=== PATIENT | female | born 1985 | race Caucasian/White ===

== ENCOUNTER 2024-08-06 00:08 | Inpatient (IN) ==
[2024-08-06] MEDS ORDERED: LIDOCAINE 1% LOCAL 20 ML VIAL INFIL PRN (01:12)
[2024-08-06] MEDS ORDERED: OXYTOCIN 30 UNITS/NSS 30 UNITS/500 ML BAG IV PRN (01:12)
--- NOTE | 2024-08-06 01:16 | History & Physical Report ---
Date of Service August 06, 2024 Assessment & Plan (1) Group B streptococcal infection during : (2) Previous delivery affecting : (3) Normal labor: Plan Patient presents at 39 weeks in active spontaneous labor. She is very much desirous of a PARRIS/. Although I cannot locate an actual op report in her previous records, it is listed in her ob history that she has a low transverse c/s. The c/s occurred in such a way and time that it is very likely a ltcs. Additionally, she was never told she was not a candidate for a PARRIS by her delivering physician. We reviewed the consent for PARRIS/ discussing the 1% chance of rupture and the potential consequences of this. She understands that if she does not have a ltcs or extension with her previous surgery, she is at higher risk of rupture with parris. FEtus is category 2 with a very occasional variable, but over all excellent variability with accels. Confirmed cephalic by ultrasound. Will allow PARRIS but if any concern, would move to c/s. They express understanding of this. Treat for GBS positive. Anticipate . History of Present Illness Chief Complaint: contractions Primary Care Provider: NO PCP Patient is a 39yowf who presents to labor and delivery at 39 2/7 complaining of onset of contractions around 10pm, quickly becoming painful. no lof/vb. +fm. has been uncomplicated. Patient has hx of of 23 weeker that shortly after . then she had a c/s in her second . iol, got to complete, did not push for long and was told that she would need a c/s because not moving the baby and ? about swelling of her perineum. She notes that delivery was uncomplicated was never told that she should not attempt a REview of the 89 pages of transferred records that we have do not have a delivery note. However, it is noted in her records under her hx that this delivery in 2020 was c/s--LTrv. I suspect this is a low transverse notation but I cannot confirm this with the actual op report. and Delivery Plans AMA Weekly NST's starting @ 36weeks Prior Planning for but will schedule repeat in 40th wk in case she does not go into labor on her own. C/S SCHEDULED FOR 08/14/[address] 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 Hep B Non-Immune *Rec Vaccine GBS Positive *Treat in Labor OB Labs: Blood Type A Positive 01/02/24 Antibody Screen NEGATIVE 01/02/24 Hgb 12.1 g/dl (12.0-16.0) 05/30/24 Hct 34.8 % (37.0-47.0) L 05/30/24 MCV 90.6 fL (80.0-100.0) 01/02/24 Plt Count 209 K/uL (130-400) 01/02/24 Rubella IgG Antibody Immune (Immune) 01/02/24 RPR Nonreactive (Nonreactive) 01/02/24 Treponema pallidum Ab Negative (Negative) 05/30/24 Hep Bs Antigen Negative (Negative) 01/02/24 HIV 1&2 Ab/P24 Ag 4thGn Negative (Negative) 01/02/24 Glucose 1 Hr 50 gm 83 mg/dl (70-130) 05/30/24 OB Optional Labs: Chlamydia trachomatis RNA Not Detected (NotDetected) 01/02/24 Neisseria gonorrhoeae RNA Not Detected (NotDetected) 01/02/24 low risk panorama gbs positive Allergies Allergy/AdvReac Type Severity Reaction Status Date / Time hydromorphone [From Dilaudid] Allergy Unknown Difficulty Verified 07/31/24 15:21 Breathing Home Medications Medication Instructions Recorded Confirmed Type vits no.124-ferrous fum 1 tab PO DAILY 08/06/24 08/06/24 History 27 mg iron-folic acid 800 mcg tablet ( Vitamin) Patient History Medical History History of chicken pox Psoriasis Surgical History H/O wisdom tooth extraction S/P due to arrest of descent Family History Grandfather (Paternal) Myocardial infarction Grandmother (Paternal) Ovarian cancer Great grandma Denies family history of Prostate cancer Breast cancer Colorectal cancer Social History (Updated 12/28/23 @ 11:51 by NANALEE Sweeney Smoking Status: Never smoker Second Hand Exposure: No; Do You Dip or Chew Tobacco: No; Hx Alcohol Use: No Hx Substance Use: No Preferred Language: Nepalese School Based Therapist Required: No Beliefs That Will Affect Care: None marital status: marital status details: Angel Garcia (42) [phone] Current Living Situation: Spouse Current Living Situation Comment: lives with , daughter, and 1 dog current occupational status: employed current occupation: [employer] How many Children do You have: 1 Feels Safe at Home: Yes Safety Concerns: Feels Safe At This Time Assistive Devices: None OB History Past Pregnancies Del. Date GA wks Lbr Lgth wt Sex Type del Anes Place Del Prov ? Comment 02/03/20 23 3lbs F Epidural Other [facility] in [place] Y PTL, 20hr after delivery- edgar-widemann syndrome 04/28/21 40 7lb F Spi nal [facility] in [place] N Pt unsure 03/14/23 8 Aborted-Spontaneous MAB @ 8w2d , Cytotec Physical Exam Constitutional: WD/WN, vitals as above Gastrointestinal (Abdomen): soft, gravid, nt Psychiatric: A+Ox3, euthymic affect Genitourinary: cx--4-5/100/-2 EFM--140s with mod variability, small accels, occasional variable toco--q2min Results & Data Vital Signs (Past 12 Hours) Vital Signs Pulse Resp BP 08/06/24 00:39 18 08/06/24 00:27 80 132/84 Coding Level of Care Code None Diagnoses Group B streptococcal infection during O98.819; B95.1 Previous delivery affecting O34.219 Normal labor O80; Z37.9
[2024-08-06] MEDS: SODIUM CHLORIDE 0.9% 1,000 ML IV SCH ×2 (01:35→07:08)
[2024-08-06] MEDS: PENICILLIN GK 6 MU in SODIUM CHLORIDE 0.9% 250 ML IV STA (01:39)
[2024-08-06 01:43] LABS: Hematocrit (blood only) 35.4 % (37.0-47.0); Hemoglobin 12.7 g/dl (12.0-16.0); Mean Corpuscular Hgb Conc 35.9 g/dL (32.0-36.0); Mean Corpuscular Volume 91.9 fL (80.0-100.0); Mean Platelet Volume 11.6 fL (9.4-12.4); Platelet Count 124 K/uL (130-400); RDW Coefficient of Variation 12.9 % (11.5-14.5); RDW Standard Deviation 42.2 fL (36.4-46.3); Red Blood Count 3.85 M/uL (4.20-5.40); White Blood Count 11.88 K/ul (4.8-10.8)
[2024-08-06] MEDS ORDERED: SODIUM CHLORIDE 0.9% PF INJ 10 ML VIAL EPI PRN (01:51)
[2024-08-06] MEDS ORDERED: BUPIVACAINE 0.25% PF 30 ML VIAL EPI PRN (01:51)
[2024-08-06] MEDS ORDERED: NALBUPHINE HCL INJ 10 MG/ML AMP IV PRN ×2 (01:51→06:17)
[2024-08-06] MEDS ORDERED: LIDOCAINE 2% MPF LOCAL 5 ML VIAL EPI PRN (01:51)
[2024-08-06] MEDS ORDERED: fentaNYL citrate PF 100 MCG/2 ML VIAL EPI PRN (01:51)
[2024-08-06] MEDS ORDERED: ROPIVACAINE 0.5% PF 5 MG/ML 20 ML VIAL EPI PRN (01:51)
[2024-08-06] MEDS ORDERED: NALOXONE HCL 0.4 MG/1 ML VIAL/CARP IV PRN ×2 (01:51→06:17)
[2024-08-06] MEDS ORDERED: NALOXONE HCL 1 MG in SODIUM CHLORIDE 0.9% 1,000 ML IV PRN ×2 (01:51→06:17)
[2024-08-06] MEDS ORDERED: diphenhydrAMINE 50 MG/ML VIAL IV PRN ×2 (01:51→06:17)
--- NOTE | 2024-08-06 01:51 | Anesthesiology Consultation ---
Date of Service August 06, 2024 Assessment & Plan (1) Encounter for pre-operative examination: Chart Review Chart Review: Patient NOT seen in Pre Admission Testing and Acceptable Risk for Labor Epidural Consults Requested none History Height/Weight Height: 5 ft 2 in Weight: 83.461 kg Allergies Allergy/AdvReac Type Severity Reaction Status Date / Time hydromorphone [From Dilaudid] Allergy Unknown Difficulty Verified 07/31/24 15:21 Breathing Medications Home Medications Medication Instructions Recorded Confirmed Last Taken vits no.124-ferrous fum 1 tab PO DAILY 08/06/24 08/06/24 Unknown 27 mg iron-folic acid 800 mcg tablet ( Vitamin) Active Medications Generic Name Dose Route Start Last Admin Trade Name Freq PRN Reason Stop Dose Admin Penicillin G Potassium 6 mu/ 262 mls @ 250 mls/hr 08/06/24 01:12 08/06/24 01:39 Sodium Chloride IV 08/06/24 02:14 250 mls/hr NOW STA Administration Sodium Chloride 1,000 mls @ 50 mls/hr 08/06/24 01:30 08/06/24 01:35 Nss IV 08/07/24 01:29 999 mls/hr .Q20H SORAIDA Administration Past Medical History Medical History History of chicken pox Psoriasis Past Family History Family History Grandfather (Paternal) Myocardial infarction Grandmother (Paternal) Ovarian cancer Great grandma Denies family history of Prostate cancer Breast cancer Colorectal cancer Past Surgical History Surgical History S/P due to arrest of descent H/O wisdom tooth extraction Social History Smoking Status: Never smoker Do You Dip or Chew Tobacco: No Hx Alcohol Use: No Hx Substance Use: No substance use type: does not use Physical Exam Vital Signs Last Vital Signs Pulse 88 08/06/24 01:46 Resp 18 08/06/24 00:39 BP 132/84 08/06/24 00:27 Pulse Ox 97 08/06/24 01:46 Testing Laboratory Results 08/06/24 01:25
[2024-08-06] MEDS: fentANYL 2 MCG/ML BUPIVacaine 0.125%-NSS 100ML BAG EPI PRN (02:11)
[2024-08-06] MEDS: BUPIVACAINE 0.25% PF 30 ML VIAL EPI STA (02:12)
[2024-08-06] MEDS: LIDOCAINE 2%/EPINEPHRINE 1:200,000 20 ML PF EPI STA (02:12)
--- NOTE | 2024-08-06 04:43 | Labor Progress Brief Note ---
Date of Service August 06, 2024 Subjective comfortable Assessment & Plan (1) Normal labor: Plan arom done, continue to monitor closely, overall status reassuring. spontaneous labor. Admission and Anticipated Discharge Date Admission Date: August 06, 2024 Physical Exam Physical Exam: cx--6/100/-2 arom--clear toco--q1-3min efm--150s with mod variaiblity and accels, variables noted mostly with contractions. on a couple of occasions has had 3 or so contractions right on top of one another and a decel with this. resolves immediately when contractions space more Results & Data Vital Signs (Past 12 Hours) Vital Signs Temp Pulse Resp BP Pulse Ox 08/06/24 04:36 97 08/06/24 04:36 86 08/06/24 04:31 96 08/06/24 04:31 85 08/06/24 04:29 80 08/06/24 04:29 115/68 08/06/24 04:28 92 08/06/24 04:28 79 08/06/24 04:26 95 08/06/24 04:26 79 08/06/24 04:21 94 08/06/24 04:21 87 08/06/24 04:19 94 08/06/24 04:19 88 08/06/24 04:16 95 08/06/24 04:16 102 H 08/06/24 04:12 94 08/06/24 04:12 89 08/06/24 04:12 109/60 08/06/24 04:11 93 08/06/24 04:11 87 08/06/24 04:06 93 08/06/24 04:06 90 08/06/24 04:01 93 08/06/24 04:01 92 H 08/06/24 04:00 16 08/06/24 04:00 16 08/06/24 03:58 93 08/06/24 03:58 88 08/06/24 03:58 107/58 L 08/06/24 03:56 93 08/06/24 03:56 91 H 08/06/24 03:51 93 08/06/24 03:51 99 H 08/06/24 03:48 94 08/06/24 03:48 88 08/06/24 03:46 93 08/06/24 03:46 98 H 08/06/24 03:42 94 08/06/24 03:42 101 H 08/06/24 03:42 108/68 08/06/24 03:41 96 08/06/24 03:41 98 H 08/06/24 03:37 94 08/06/24 03:37 99 H 08/06/24 03:36 94 08/06/24 03:36 88 08/06/24 03:31 94 08/06/24 03:31 106 H 08/06/24 03:30 18 08/06/24 03:30 18 08/06/24 03:28 93 H 08/06/24 03:28 111/69 08/06/24 03:26 95 08/06/24 03:26 108 H 08/06/24 03:25 94 08/06/24 03:25 92 H 08/06/24 03:21 93 08/06/24 03:21 86 08/06/24 03:16 93 08/06/24 03:16 84 08/06/24 03:12 96 H 08/06/24 03:12 108/62 08/06/24 03:11 94 08/06/24 03:11 90 08/06/24 03:06 94 08/06/24 03:06 93 H 08/06/24 03:05 94 08/06/24 03:05 96 H 08/06/24 03:01 94 08/06/24 03:01 94 H 08/06/24 03:00 94 08/06/24 03:00 98 H 08/06/24 02:59 90 08/06/24 02:59 109/67 08/06/24 02:56 95 08/06/24 02:56 98 H 08/06/24 02:54 93 08/06/24 02:54 93 H 08/06/24 02:51 96 08/06/24 02:51 92 H 08/06/24 02:46 96 08/06/24 02:46 94 H 08/06/24 02:41 97 08/06/24 02:41 91 H 08/06/24 02:41 106/61 08/06/24 02:39 90 08/06/24 02:39 110/71 08/06/24 02:37 91 H 08/06/24 02:37 119/74 08/06/24 02:36 98 08/06/24 02:36 90 08/06/24 02:36 92 H 08/06/24 02:36 134/62 08/06/24 02:33 81 08/06/24 02:33 120/69 08/06/24 02:31 97 08/06/24 02:31 98 H 08/06/24 02:31 121/62 08/06/24 02:29 99 H 08/06/24 02:29 112/74 08/06/24 02:27 81 08/06/24 02:27 113/73 08/06/24 02:26 96 08/06/24 02:26 86 08/06/24 02:23 87 08/06/24 02:23 108/59 L 08/06/24 02:21 96 08/06/24 02:21 96 H 08/06/24 02:21 86 08/06/24 02:21 108/60 08/06/24 02:19 88 08/06/24 02:19 113/61 08/06/24 02:17 101 H 08/06/24 02:17 114/64 08/06/24 02:16 96 08/06/24 02:16 97 H 08/06/24 02:16 113/60 08/06/24 02:16 94 08/06/24 02:16 97 H 08/06/24 02:15 93 H 08/06/24 02:15 107/56 L 08/06/24 02:13 76 08/06/24 02:13 111/67 08/06/24 02:11 96 08/06/24 02:11 79 08/06/24 02:11 121/69 08/06/24 02:08 87 08/06/24 02:08 138/65 08/06/24 02:06 97 08/06/24 02:06 96 H 08/06/24 02:05 92 08/06/24 02:05 95 H 08/06/24 02:01 98 08/06/24 02:01 103 H 08/06/24 01:58 94 08/06/24 01:58 107 H 08/06/24 01:57 86 08/06/24 01:57 151/95 H 08/06/24 01:56 98 08/06/24 01:56 82 08/06/24 01:51 97 08/06/24 01:51 90 08/06/24 01:46 97 08/06/24 01:46 88 08/06/24 01:41 95 08/06/24 01:41 85 08/06/24 01:36 96 08/06/24 01:36 79 08/06/24 01:00 37.0 C 08/06/24 00:39 18 08/06/24 00:27 80 132/84 Coding Level of Care Code None Diagnoses Normal labor O80; Z37.9
--- NOTE | 2024-08-06 05:08 | Communication Note ---
Date of Service: August 06, 2024 Shortly after arom another decel. Tried to place fse x 2 not successful because of interference and iupc placed but fell out. She is now 9/-1. So things happening rapidly, baby moving down in canal and I suspect that we are going to find a nuchal cord. Good scalp stim and variability. again most decels are variable in nature and now occurring with a contraction. Will continue to follow closely but anticipate soon.
[2024-08-06] MEDS: PENICILLIN GK 3 MU in DEXTROSE 5% 100 ML IV PRN (05:09)
[2024-08-06] MEDS: TERBUTALINE SULFATE 1 MG/ML VIAL SQ ONE (05:14)
--- NOTE | 2024-08-06 05:35 | Communication Note ---
Date of Service: August 06, 2024 Shortly thereafter had a run a tachysystole that prompted a 8-10 minute decel. Treated wtih terb and did eventually have resolution to 150s which is her baseline before. She has had several runs of contractions but this was the longest one. the baby is now reassuring. However, still 8cm. Has not pushed out a term baby and potentially had a c/s for FTD with her last . Discussed that now that baby happier and no longer tachysystole, can try to see what happens from now. However, potentially still an hour from complete and additional pushing time. Contractions were spontaneous and may achieve tachysystole again at some point. Patient notes she wants to do what is safest of the baby. Discussed the risks of repeat c/s and the potential that the baby will not respond appropriately after another run of contractions. Discussed certainly reasonable to have a wait and see attitude given complete resolution to category one fhr. Patient notes that she would like to proceed with c/s delivery given the uncertainty of the rest of the labor. consent reviewed and signed.
[2024-08-06] MEDS: CITRIC ACID/SODIUM CITRATE 15 ML UDC PO SCH (05:36)
[2024-08-06] MEDS: ceFAZolin 2000MG 2,000 MG/15 ML SYR IV SCH (05:41)
[2024-08-06] MEDS: AZITHROMYCIN 500 MG in SODIUM CHLORIDE 0.9% 250 ML IV SCH (05:48)
[2024-08-06] MEDS ORDERED: OXYTOCIN 10 UNITS/ML VIAL ONE ×2 (05:59→06:25)
[2024-08-06] MEDS ORDERED: PHENYLEPHRINE 100MCG/ML 5ML SYR ONE (05:59)
[2024-08-06] MEDS ORDERED: ONDANSETRON INJ 2 MG/ML 2 ML VIAL ONE (05:59)
[2024-08-06] MEDS ORDERED: MoRPHine SULFATE PF 1 MG/ML 10 ML AMP/VIAL ONE (06:00)
[2024-08-06] MEDS ORDERED: LIDOCAINE 2%/EPINEPHRINE 1:200,000 20 ML PF ONE (06:02)
[2024-08-06] MEDS ORDERED: KETOROLAC 30 MG/ML VIAL ONE (06:03)
[2024-08-06] MEDS ORDERED: ONDANSETRON INJ 2 MG/ML 2 ML VIAL IV PRN (06:17)
[2024-08-06] MEDS ORDERED: PROMETHAZINE 6.25 MG/50.25 ML BAG IV PRN (06:17)
[2024-08-06] MEDS ORDERED: NALOXONE HCL 0.08 MG in SYRINGE 1.8 ML IV PRN (06:17)
[2024-08-06] MEDS ORDERED: ePHEDrine sulfate 50 MG/ML AMP IV PRN (06:17)
--- NOTE | 2024-08-06 06:17 | Newborn Progress Note ---
Date of Service August 06, 2024 [place] Delivery Note Information Date of : 08/06/24 Time of : 06:01 Length (inches): 5 ft 2 in Sex: F Race: White Attendance at Delivery English Adjunct Faculty at Delivery: Sabrina Rangel Method of Delivery Type of Delivery: (repeat, failed with intolerance to labor) Gestational Age Gestational Age (weeks): 39 Mother's Information Family History: + pertinent history of (AMA, prior after 23 week delivery (Freedom Weidmann syndrome)) Blood Type: A+ : 4 Para: 2 Group B Strep Status: Positive (inadequate treatment with PCN X 1; ROM X 1.5 hrs) VDRL: non-reactive Rubella Status: Immune HbSAg: negative HIV: negative Chlamydia: negative Gonorrhea: negative HSV: unknown Anesthesia: Labor Epidural Delivery Care Resuscitation: External Stimulation and Suction (bulb to mouth and nose) Scoring score (1 min): 9 score (5 min): 9 Additional Comments: delivered to crib with HR>100 bpm and strong cry; no resuscitation required PG Care Time/CCT Total # of Minutes Spent Total Time Spent with Patient: Total time spent is greater than 50% in coordination of care (as documented) at patient's floor/unit and/or counseling patient: Coding Level of Care Code 45968 Attend Delivery
[2024-08-06] MEDS ORDERED: DC INTRASPINAL MORPHINE SCH (06:30)
[2024-08-06] MEDS ORDERED: NO NARCOTICS OR SEDATIVES SCH (06:30)
[2024-08-06 06:32] LABS: Base Excess Cord Venous Blood -3.8 mEq/L (-7.7-1.9); Cord Venous Blood HCO3 23 mmol/L (18.4-26.8); Cord Venous Blood PCO2 48 mmHg (30.4-57.2); Cord Venous Blood PO2 25 mmHg (14.1-43.3); Cord Venous Blood pH 7.29 (7.20-7.44); O2 Saturation Cord Venous Bld < 60.0 % (<68)
[2024-08-06 06:33] LABS: Base Excess Cord Arterial Bld -5.4 mEq/L (-9-1.8); CO2 Cord Arterial Blood 67 mmHg (39.1-73.5); HCO3 Cord Arterial Blood 24 mmol/L (19.7-28.5); Oxygen Sat Cord Arterial Blood < 60.0 % (<60); PO2 Cord Arterial Blood < 20 mmHg (4.1-31.7); pH Cord Arterial Blood 7.17 (7.1-7.38)
--- NOTE | 2024-08-06 06:51 | Anesthesiology Progress Note ---
Date of Service August 06, 2024 Anesthesia Post Procedure Vital Signs Vital Signs: Temp Pulse Resp BP Pulse Ox 08/06/24 06:48 95 08/06/24 06:48 107 H 08/06/24 06:47 109 H 08/06/24 06:47 83/48 L 08/06/24 06:44 94 08/06/24 06:44 109 H 08/06/24 06:43 94 08/06/24 06:43 109 H 08/06/24 06:39 93 08/06/24 06:39 111 H 08/06/24 06:39 96/53 L 08/06/24 06:38 95 08/06/24 06:38 110 H 08/06/24 05:41 97 08/06/24 05:41 141 H 08/06/24 05:36 97 08/06/24 05:36 147 H 08/06/24 05:31 98 08/06/24 05:31 151 H 08/06/24 05:29 127 H 08/06/24 05:29 125/66 08/06/24 05:26 100 08/06/24 05:26 117 H 08/06/24 05:21 100 08/06/24 05:21 129 H 08/06/24 05:16 91 08/06/24 05:16 153 H 08/06/24 05:14 93 08/06/24 05:14 93 H 08/06/24 05:12 88 08/06/24 05:12 117/74 08/06/24 05:11 97 08/06/24 05:11 82 08/06/24 05:06 98 08/06/24 05:06 96 H 08/06/24 05:05 90 08/06/24 05:05 107 H 08/06/24 05:01 98 08/06/24 05:01 88 08/06/24 04:56 98 08/06/24 04:56 89 08/06/24 04:51 96 08/06/24 04:51 94 H 08/06/24 04:48 94 08/06/24 04:48 79 08/06/24 04:46 95 08/06/24 04:46 77 08/06/24 04:43 75 08/06/24 04:43 94/51 L 08/06/24 04:42 93 08/06/24 04:42 79 08/06/24 04:42 96/53 L 08/06/24 04:41 96 08/06/24 04:41 80 08/06/24 04:36 97 08/06/24 04:36 86 08/06/24 04:31 96 08/06/24 04:31 85 08/06/24 04:29 80 08/06/24 04:29 115/68 08/06/24 04:28 92 08/06/24 04:28 79 08/06/24 04:26 95 08/06/24 04:26 79 08/06/24 04:21 94 08/06/24 04:21 87 08/06/24 04:19 94 08/06/24 04:19 88 08/06/24 04:16 95 08/06/24 04:16 102 H 08/06/24 04:12 94 08/06/24 04:12 89 08/06/24 04:12 109/60 08/06/24 04:11 93 08/06/24 04:11 87 08/06/24 04:06 93 08/06/24 04:06 90 08/06/24 04:01 93 08/06/24 04:01 92 H 08/06/24 04:00 16 08/06/24 04:00 16 08/06/24 03:58 93 08/06/24 03:58 88 08/06/24 03:58 107/58 L 08/06/24 03:56 93 08/06/24 03:56 91 H 08/06/24 03:51 93 08/06/24 03:51 99 H 08/06/24 03:48 94 08/06/24 03:48 88 08/06/24 03:46 93 08/06/24 03:46 98 H 08/06/24 03:42 94 08/06/24 03:42 101 H 08/06/24 03:42 108/68 08/06/24 03:41 96 08/06/24 03:41 98 H 08/06/24 03:37 94 08/06/24 03:37 99 H 08/06/24 03:36 94 08/06/24 03:36 88 08/06/24 03:31 94 08/06/24 03:31 106 H 08/06/24 03:30 18 08/06/24 03:30 18 08/06/24 03:28 93 H 08/06/24 03:28 111/69 08/06/24 03:26 95 08/06/24 03:26 108 H 08/06/24 03:25 94 08/06/24 03:25 92 H 08/06/24 03:21 93 08/06/24 03:21 86 08/06/24 03:16 93 08/06/24 03:16 84 08/06/24 03:12 96 H 08/06/24 03:12 108/62 08/06/24 03:11 94 08/06/24 03:11 90 08/06/24 03:06 94 08/06/24 03:06 93 H 08/06/24 03:05 94 08/06/24 03:05 96 H 08/06/24 03:01 94 08/06/24 03:01 94 H 08/06/24 03:00 94 08/06/24 03:00 98 H 08/06/24 02:59 90 08/06/24 02:59 109/67 08/06/24 02:56 95 08/06/24 02:56 98 H 08/06/24 02:54 93 08/06/24 02:54 93 H 08/06/24 02:51 96 08/06/24 02:51 92 H 08/06/24 02:46 96 08/06/24 02:46 94 H 08/06/24 02:41 97 08/06/24 02:41 91 H 08/06/24 02:41 106/61 08/06/24 02:39 90 08/06/24 02:39 110/71 08/06/24 02:37 91 H 08/06/24 02:37 119/74 08/06/24 02:36 98 08/06/24 02:36 90 08/06/24 02:36 92 H 08/06/24 02:36 134/62 08/06/24 02:33 81 08/06/24 02:33 120/69 08/06/24 02:31 97 08/06/24 02:31 98 H 08/06/24 02:31 121/62 08/06/24 02:29 99 H 08/06/24 02:29 112/74 08/06/24 02:27 81 08/06/24 02:27 113/73 08/06/24 02:26 96 08/06/24 02:26 86 08/06/24 02:23 87 08/06/24 02:23 108/59 L 08/06/24 02:21 96 08/06/24 02:21 96 H 08/06/24 02:21 86 08/06/24 02:21 108/60 08/06/24 02:19 88 08/06/24 02:19 113/61 08/06/24 02:17 101 H 08/06/24 02:17 114/64 08/06/24 02:16 96 08/06/24 02:16 97 H 08/06/24 02:16 113/60 08/06/24 02:16 94 08/06/24 02:16 97 H 08/06/24 02:15 93 H 08/06/24 02:15 107/56 L 08/06/24 02:13 76 08/06/24 02:13 111/67 08/06/24 02:11 96 08/06/24 02:11 79 08/06/24 02:11 121/69 08/06/24 02:08 87 08/06/24 02:08 138/65 08/06/24 02:06 97 08/06/24 02:06 96 H 08/06/24 02:05 92 08/06/24 02:05 95 H 08/06/24 02:01 98 08/06/24 02:01 103 H 08/06/24 01:58 94 08/06/24 01:58 107 H 08/06/24 01:57 86 08/06/24 01:57 151/95 H 08/06/24 01:56 98 08/06/24 01:56 82 08/06/24 01:51 97 08/06/24 01:51 90 08/06/24 01:46 97 08/06/24 01:46 88 08/06/24 01:41 95 08/06/24 01:41 85 08/06/24 01:36 96 08/06/24 01:36 79 08/06/24 01:00 98.6 F 08/06/24 00:39 18 08/06/24 00:27 80 132/84 Pain Intensity Lower Abdomen: Pain Intensity: 1 Transfer of Care Handoff Completed per policy Notes Mental Status: alert / awake / arousable and participated in evaluation Patient Amnestic to Procedure: Yes Nausea / Vomiting: adequately controlled Pain: adequately controlled Airway Patency, RR, SpO2: stable & adequate BP & HR: stable & adequate Hydration State: stable & adequate Neuraxial Anesthesia: was administered and sensory block is resolving Anesthetic Complications: no major complications apparent and Pt Satisfied with anesthetic care
--- NOTE | 2024-08-06 06:51 | Anesthesia Procedure Note ---
Date of Service August 06, 2024 Anesthesia Post Epidural Note Vital Signs Vital Signs: Temp Pulse Resp BP Pulse Ox 98.6 F 107 H 16 83/48 L 95 08/06/24 01:00 08/06/24 06:48 08/06/24 04:00 08/06/24 06:47 08/06/24 06:48 Pain Intensity Lower Abdomen: Pain Intensity: 1 Notes Mental Status: alert / awake / arousable and participated in evaluation Nausea / Vomiting: adequately controlled Pain: adequately controlled Airway Patency, RR, SpO2: stable & adequate BP & HR: stable & adequate Hydration State: stable & adequate Neuraxial Anesthesia: was administered and sensory block is resolving Anesthetic Complications: no major complications apparent and Pt Satisfied with anesthetic care Epidural: Removed without complications and With tip intact
--- NOTE | 2024-08-06 06:52 | Operative Report ---
PG Post Operative Report Pre & Post Diagnosis Operation Date: 08/06/24 05:25 <No data on this case meets the specified criteria> preop IUP at 39 weeks history of previous c/s nrfht postop--same I identified the patient and participated in the time-out.: Yes Procedure Operation Date: 08/06/24 05:25 Actual Procedures pRepeat lower transverse Section in LD of a [facility]@ 0601 (Bilateral) - Марина Benson MD, FACOG Surgeon Марина Benson MD, FACOG Psychologist Personnel Jese segovia RN Estimated Blood Loss 508 Findings Consistent with Post-Op Diagnosis uterus with ballooning lower uterine segment, but it was intact, nl tubes/ovs, loose nuchal cord x 1, clear fluid, apgars 9/9 Fluids 1000cc IVF UOP--clear urine draining Specimens none Drains peguero Anesthesia Type Labor Epidural Disposition Accompanied Patient To Recovery: No Disposition: L&D Indications 39yowf who presents to labor and delivery in active labor. Hx of previous c/s in 2020. Desires . Multiple runs of tachysystole with deceleration, required terbutaline. Fetus did recover to category one after terbutaline, but onely 8cm and no hx of vaginal delivery of term (vag del of 23 weeker). Discussed pros/cons of continued attempt at labor and proceeding with c/s and chose latter. Description of Procedure The patient was taken to the operating room where she was identified verbally and by bracelet. She was placed on the operating table where her epidural was dosed by anesthesia. She was then placed in the supine position with a leftward tilt. A Peguero catheter had been placed sterilely. the patient was prepped and draped in a normal standard fashion. the anesthetic was tested and found to be adequate. A time-out was held, identifying correct patient, procedure, positioning and preoperative antibiotics. There were no concerns. A Pfannenstiel skin incision was made with a knife and taken down to the underlying layer of fascia with the knife and Bovie electrocautery. Bleeding was attended to with the Bovie. The fascia was incised in the midline with the knife and taken out laterally with scissors. The superior edge of the fascial incision was grasped, elevated and the underlying layer of rectus muscle was taken off bluntly and with scissors. In a similar fashion, the inferior edge of the fascial incision was grasped, elevated and the underlying layer of rectus muscle was taken off bluntly and with scissors. The muscles were bluntly in the midline. The peritoneum was entered bluntly. The incision was then stretched. The bladder blade was placed. There was a ballooning of the JAIME noted, but it was intact, thin but no window. The vesicouterine peritoneum was identified, entered with scissors and taken out laterally with scissors. The bladder flap was created digitally A hysterotomy incision was scored with a knife and the incision was stretched superiorly and inferiorly with the metal bonding press operator's fingers. The operators hand was placed into the incision and the head was delivered atraumatically. A loose nuchal cord was reduced. The nose and mouth were bulb suctioned. the rest of the was then delivered without difficulty. The nose and mouth were again bulb suctioned. The cord was clamped and cut and the was then handed off to the awaiting event planning manager for drying and attention. Cord blood and segment were obtained. The placenta was expressed. The uterus was exteriorized and cleared of all clot and debris with moistened laparotomy sponges. The hysterotomy incision was repaired in two layers, the first in a running locked layer, the second in an imbricating layer. Hemostasis was noted to be good. Posterior cul-de-sac was irrigated and cleared of all clot and debris. The hysterotomy incision was again inspected and found to be hemostatic. the uterus was reinteriorized. A suture needed for hemostasis in the midline. then Perclot was placed over the incision. Hemostasis was noted to be good. The fascia was then reapproximated with 0 Vicryl starting at the edges and meeting in the midline. The subcuticular tissues were copiously irrigated and bleeding was attended to with cautery. The skin was then closed with 4-0 Vicryl in a subcuticular fashion. All sponge, lap and needle counts correct x 2. The patient tolerated the procedure well and taken to the recovery room in stable condition. I attest to the content of the Intraoperative Record and any orders documented therein. Any exceptions are noted below. OB Procedure Charges 90160
[2024-08-06] MEDS: ACETAMINOPHEN 500 MG TAB PO SCH (07:06)
[2024-08-06] MEDS: fentaNYL citrate PF 100 MCG/2 ML VIAL ONE (07:07)
[2024-08-06] MEDS: ePHEDrine sulfate 50 MG/ML AMP ONE (07:07)
[2024-08-06] MEDS: BUPIVACAINE 0.25% PF 30 ML VIAL ONE (07:07)
[2024-08-06] MEDS ORDERED: SENNA 8.6 MG TAB PO PRN (07:08)
[2024-08-06] MEDS: SODIUM CHLORIDE 0.9% PF INJ 10 ML VIAL ONE (07:08)
[2024-08-06] MEDS: LIDOCAINE 2%/EPINEPHRINE 1:200,000 20 ML PF ONE (07:08)
[2024-08-06] MEDS: fentANYL 2 MCG/ML BUPIVacaine 0.125%-NSS 100ML BAG ONE (07:08)
[2024-08-06] MEDS ORDERED: CALCIUM CARBONATE 500 MG CHEWABLE TAB PO PRN (07:08)
[2024-08-06] MEDS: SODIUM CHLORIDE 0.9% PF INJ 10 ML VIAL EPI STA (07:08)
[2024-08-06] MEDS: fentaNYL citrate PF 100 MCG/2 ML VIAL EPI STA (07:08)
[2024-08-06] MEDS ORDERED: BENZOCAINE 20% SPRY 85 APPLN/85 GM CAN EXT PRN (07:08)
[2024-08-06] MEDS ORDERED: HYDROCORTISONE ACETATE 25 MG SUPP PR PRN (07:08)
[2024-08-06] MEDS ORDERED: MAGNESIUM HYDROXIDE SUSP 30 ML UDC PO PRN (07:08)
[2024-08-06] MEDS: ePHEDrine sulfate 50 MG/ML AMP IV PRN (07:14)
[2024-08-06] MEDS: MoRPHine SULFATE 2 MG/ML CARP IV PRN (08:19)
[2024-08-06] MEDS: SIMETHICONE 80 MG CHEW PO SCH (09:55)
[2024-08-06] MEDS: FERROUS SULFATE 325 MG TAB PO SCH (09:55)
[2024-08-06] MEDS: PRENATAL VITAMIN 1 TAB PO SCH (09:55)
[2024-08-06] MEDS: DOCUSATE SODIUM 100 MG CAP PO SCH (09:56)
[2024-08-06] MEDS: KETOROLAC 30 MG/ML VIAL IV SCH (12:28)
[2024-08-06] MEDS: OXYTOCIN 20 UNITS/LR 1,002 ML IV SCH (12:28)
[2024-08-06] MEDS: ACETAMINOPHEN 325 MG TAB PO SCH (12:29)
--- NOTE | 2024-08-06 19:29 | Obstetrical Progress Note ---
Date of Service August 06, 2024 Assessment & Plan (1) Abdominal bloat[age]-year-old status post repeat at around 530 this morning. Presented to evaluate noted abdominal distention and related tenderness. Marked abdominal distention noted on exam with tympany noted. Bowel sounds were appreciated by nursing. Patient has past small flatus throughout the day. Urine output has been marginal. Will arrange CT scan to ensure that current findings are only ileus related and not something more concerning. If ileus is present we will start on bowel regiment changed to liquid diet. Discussed ambulation. Will give IV bolus pending results from CT. (2) Ileus, postoperative: Subjective Presented to bedside for evaluation due to noted marked increase in abdominal bloating. Has passed small flatus since this morning. Bleeding has been within normal limits. Uterus has been difficult to palpate due to noted distention. Urine output has been minimal with bladder scan only showing 40 mL residual in the bladder following void Physical Exam Gastrointestinal (Abdomen) Inspection/Auscultation: + abdomen distended Percussion/Palpation: + abdomen tender, abdomen soft and + tympanic to percussion (Marked); no guarding and abdomen not rigid Results & Data Vital Signs (Past 12 Hours) Vital Signs Temp Pulse Pulse Resp BP BP Pulse Ox 08/06/24 18:11 22 100 08/06/24 17:15 19 100 08/06/24 16:15 19 100 08/06/24 15:10 20 100 08/06/24 15:10 36.9 C 86 20 114/68 100 08/06/24 14:00 16 99 08/06/24 13:00 16 98 08/06/24 12:00 16 95 08/06/24 11:33 36.7 C 86 16 115/66 95 08/06/24 11:00 16 95 08/06/24 10:00 16 93 08/06/24 09:08 08/06/24 09:08 16 94 08/06/24 09:08 37.1 C 111 H 16 112/73 94 08/06/24 08:58 93 08/06/24 08:58 112 H 08/06/24 08:56 94 08/06/24 08:56 110 H 08/06/24 08:56 110/56 L 08/06/24 08:53 93 08/06/24 08:53 106 H 08/06/24 08:48 94 08/06/24 08:48 104 H 08/06/24 08:46 94 08/06/24 08:46 108 H 08/06/24 08:46 107 H 08/06/24 08:46 108/57 L 08/06/24 08:45 37.1 C 18 08/06/24 08:43 93 08/06/24 08:43 100 H 08/06/24 08:41 94 08/06/24 08:41 107 H 08/06/24 08:38 94 08/06/24 08:38 106 H 08/06/24 08:37 104 H 08/06/24 08:37 156/60 H 08/06/24 08:35 94 08/06/24 08:35 104 H 08/06/24 08:33 96 08/06/24 08:33 105 H 08/06/24 08:29 94 08/06/24 08:29 99 H 08/06/24 08:28 95 08/06/24 08:28 107 H 08/06/24 08:26 103 H 08/06/24 08:26 110/67 08/06/24 08:23 96 08/06/24 08:23 107 H 08/06/24 08:18 97 08/06/24 08:18 105 H 08/06/24 08:16 90 08/06/24 08:16 108/55 L 08/06/24 08:15 16 08/06/24 08:13 96 08/06/24 08:13 107 H 08/06/24 08:09 94 08/06/24 08:09 99 H 08/06/24 08:08 95 08/06/24 08:08 98 H 08/06/24 08:06 103 H 08/06/24 08:06 109/58 L 08/06/24 08:03 96 08/06/24 08:03 100 H 08/06/24 08:01 94 08/06/24 08:01 102 H 08/06/24 07:58 96 08/06/24 07:58 102 H 08/06/24 07:56 112 H 08/06/24 07:56 105/62 08/06/24 07:54 93 08/06/24 07:54 111 H 08/06/24 07:53 96 08/06/24 07:53 105 H 08/06/24 07:48 95 08/06/24 07:48 113 H 08/06/24 07:47 102 H 08/06/24 07:47 114/56 L 08/06/24 07:45 20 08/06/24 07:43 95 08/06/24 07:43 105 H 08/06/24 07:42 92 08/06/24 07:42 112 H 08/06/24 07:38 99 08/06/24 07:38 112 H 08/06/24 07:36 109 H 08/06/24 07:36 111/57 L 08/06/24 07:35 16 08/06/24 07:33 97 08/06/24 07:33 114 H 08/06/24 07:28 97 08/06/24 07:28 105 H 08/06/24 07:27 112 H 08/06/24 07:27 113/54 L 08/06/24 07:25 16 Pulse Ox O2 Del Method O2 Del Method 08/06/24 18:11 08/06/24 17:15 08/06/24 16:15 08/06/24 15:10 08/06/24 15:10 Room Air 08/06/24 14:00 08/06/24 13:00 08/06/24 12:00 08/06/24 11:33 Room Air 08/06/24 11:00 08/06/24 10:00 08/06/24 09:08 94 Room Air 08/06/24 09:08 08/06/24 09:08 Room Air 08/06/24 08:58 08/06/24 08:58 08/06/24 08:56 08/06/24 08:56 08/06/24 08:56 08/06/24 08:53 08/06/24 08:53 08/06/24 08:48 08/06/24 08:48 08/06/24 08:46 08/06/24 08:46 08/06/24 08:46 08/06/24 08:46 08/06/24 08:45 08/06/24 08:43 08/06/24 08:43 08/06/24 08:41 08/06/24 08:41 08/06/24 08:38 08/06/24 08:38 08/06/24 08:37 08/06/24 08:37 08/06/24 08:35 08/06/24 08:35 08/06/24 08:33 08/06/24 08:33 08/06/24 08:29 08/06/24 08:29 08/06/24 08:28 08/06/24 08:28 08/06/24 08:26 08/06/24 08:26 08/06/24 08:23 08/06/24 08:23 08/06/24 08:18 08/06/24 08:18 08/06/24 08:16 08/06/24 08:16 08/06/24 08:15 08/06/24 08:13 08/06/24 08:13 08/06/24 08:09 08/06/24 08:09 08/06/24 08:08 08/06/24 08:08 08/06/24 08:06 08/06/24 08:06 08/06/24 08:03 08/06/24 08:03 08/06/24 08:01 08/06/24 08:01 08/06/24 07:58 08/06/24 07:58 08/06/24 07:56 08/06/24 07:56 08/06/24 07:54 08/06/24 07:54 08/06/24 07:53 08/06/24 07:53 08/06/24 07:48 08/06/24 07:48 08/06/24 07:47 08/06/24 07:47 08/06/24 07:45 08/06/24 07:43 08/06/24 07:43 08/06/24 07:42 08/06/24 07:42 08/06/24 07:38 08/06/24 07:38 08/06/24 07:36 08/06/24 07:36 08/06/24 07:35 08/06/24 07:33 08/06/24 07:33 08/06/24 07:28 08/06/24 07:28 08/06/24 07:27 08/06/24 07:27 08/06/24 07:25
[2024-08-06] MEDS: MAGNESIUM HYDROXIDE SUSP 30 ML UDC PO SCH (20:04)
[2024-08-06] MEDS: POLYETHYLENE (MIRALAX) 17 GM PACK PO SCH (20:05)
--- NOTE | 2024-08-06 20:11 | CT Scan Report ---
Exam(s): CT ABDOMEN + PELVIS Without Contrast EXAM: CT Abdomen and Pelvis Without Intravenous Contrast CLINICAL HISTORY: Reason for exam: Abd pain, severe bloating post surgery. TECHNIQUE: Axial computed tomography images of the abdomen and pelvis without intravenous contrast. CTDI is 27 mGy and DLP is 1380 mGy-cm. Automated exposure control was utilized for the study. A dose lowering technique was utilized adhering to the principles of ALARA. COMPARISON: No relevant prior studies available. FINDINGS: ABDOMEN: Liver: Unremarkable. Gallbladder and bile ducts: Unremarkable. Pancreas: Unremarkable. Spleen: Unremarkable. Adrenals: Unremarkable. Kidneys and ureters: Unremarkable. No obstructing stones. No hydronephrosis. Stomach and bowel: Mildly dilated small bowel and colon favored to represent ileus. The stomach is nondistended. PELVIS: Appendix: No findings to suggest acute appendicitis. Bladder: Unremarkable. Reproductive: Unremarkable as visualized. ABDOMEN and PELVIS: Intraperitoneal space: appearance of the uterus status post section. Gas present within the endometrial cavity which can be postsurgical or related to endometritis. Small amount of postsurgical free air present. No abscess or hemoperitoneum. Bones/joints: No acute fracture. Soft tissues: Unremarkable. Vasculature: Unremarkable. Lymph nodes: Unremarkable. IMPRESSION: 1. appearance of the uterus status post section. Gas present within the endometrial cavity which can be postsurgical or related to endometritis. Small amount of postsurgical free air present. No abscess or hemoperitoneum. 2. Mildly dilated small bowel and colon favored to represent ileus. Electronically signed by: Mario Sharif MD 08/06/24 20:11 PM
[2024-08-06] MEDS: POLYETHYLENE (MIRALAX) 17 GM PACK ONE (21:33)
[2024-08-06] MEDS: DIPHTHER/TETAN/PERTUS Vaccine (Tdap, Adol/Adult) 0.5mL IM ONE (21:34)
[2024-08-07] MEDS ORDERED: ONDANSETRON INJ 2 MG/ML 2 ML VIAL IV PRN (00:18)
[2024-08-07] MEDS ORDERED: diphenhydrAMINE Capsule 25 MG CAP PO PRN (00:18)
[2024-08-07] MEDS ORDERED: PROMETHAZINE 12.5 MG/50.5 ML BAG IV PRN (00:18)
[2024-08-07] MEDS ORDERED: MEPERIDINE HCL 25 MG/ML CARP/VIAL IV PRN (00:18)
[2024-08-07] MEDS ORDERED: diphenhydrAMINE 50 MG/ML VIAL IV PRN (00:18)
[2024-08-07] MEDS: ACETAMINOPHEN 1,000 MG/100 ML VIAL IV PRN (00:19)
[2024-08-07 06:17] LABS: Basophils # (auto) 0.03 K/uL (0.00-0.20); Basophils % (auto) 0.2 %; Eosinophils # (auto) 0.04 K/uL (0.00-0.50); Eosinophils % (auto) 0.3 %; Hematocrit (blood only) 30.9 % (37.0-47.0); Hemoglobin 10.8 g/dl (12.0-16.0); Immature Granulocytes # (auto) 0.14 K/uL (0.01-0.20); Immature Granulocytes % (auto) 1.2 %; Lymphocytes # (auto) 0.77 K/uL (1.20-3.40); Lymphocytes % (auto) 6.4 %; Mean Corpuscular Hemoglobin 33.3 pg (25.0-34.0); Mean Corpuscular Volume 95.4 fL (80.0-100.0); Mean Platelet Volume 11.3 fL (9.4-12.4); Monocytes # (auto) 0.74 K/uL (0.11-0.59); Monocytes % (auto) 6.1 %; Neutrophils % (auto) 85.8 %; Platelet Count 107 K/uL (130-400); RDW Coefficient of Variation 13.2 % (11.5-14.5); RDW Standard Deviation 45.4 fL (36.4-46.3); Red Blood Count 3.24 M/uL (4.20-5.40); White Blood Count 12.12 K/ul (4.8-10.8)
--- NOTE | 2024-08-07 07:35 | Hospitalist Progress Note ---
Date of Service August 07, 2024 Assessment & Plan (1) Encounter for assessment: Plan: Patient is POD 1 s/p repeat C/S and doing well - Eating well, voiding well, ambulating well - vitals reviewed and within normal limits - pain well controlled with analgesics - OOB, ambulation, diet progression as tolerated - Blood type: A+, GBS pos, rubella immune - Plan to discharge tomorrow - After discharge, 6 week follow up with OBGYN Admission and Anticipated Discharge Date Admission Date: August 06, 2024 Supervising Physician Co-Signing Physician Notes Patient seen with resident and agree with the above findings and plan. Ileus appears to be resolving. Had a bowel movement overnight and feels that she needs to go again this morning. Passing gas more consistently as well. Will restart p.o. medications and transition all bowel care regimen to as needed. Will restart regular diet. Discussed restarting diet slowly with small bland food intake Subjective 39 yo post-operative day 1 s/p repeat Ambulation: ambulating normally Voiding: no voiding problems Passing Gas:: Yes Diet Tolerance:: Held diet due to Ileus, will resume this am Lochia:: Small Feeding Type:: bottle feeding Current Pain Level: 5/10 Resting comfortably this AM in NAD. Denies ASHTON, CP, SOB, N/V/D, LE pain/swelling. Physical Exam Physical Exam: General: patient resting comfortably, NAD, non-toxic in appearance, answers questions appropriately. Skin: warm, dry, intact HEENT: NC/AT, anicteric sclera, conjunctiva without injection, moist mucus membranes. Heart: +S1/S2, regular, no m/r/g Lungs: equal air entry bilaterally, no rales/rhonchi/wheezes Abd: +BS, soft, NT/ND, uterine fundus firm at umbilicus Ext: warm, no clubbing/cyanosis or edema, Merari's neg. Neuro: nonfocal, speech intact, no facial droop, moving all extremities. Results & Data Results & Data Vital Signs (Past 12 Hours) Vital Signs Temp Pulse Resp BP Pulse Ox O2 Del Method 08/07/24 03:45 36.8 C 86 18 110/69 97 Room Air 08/07/24 00:50 16 96 08/06/24 23:50 18 99 08/06/24 23:50 Room Air 08/06/24 23:50 37.3 C 88 18 105/70 99 Room Air 08/06/24 22:30 16 97 08/06/24 21:30 18 99 08/06/24 20:20 18 98 Resident Activity Tracking Resident Involvement: Resident Care Provided Care Provided: Adult Hospital Medicine
[2024-08-07] MEDS ORDERED: POLYETHYLENE (MIRALAX) 17 GM PACK PO PRN (08:47)
[2024-08-07] MEDS: ACETAMINOPHEN 325 MG TAB PO SCH (09:44)
[2024-08-07] MEDS: IBUPROFEN 600 MG TAB PO SCH (11:53)
[2024-08-07] MEDS: oxyCODONE HCL IR 5 MG TAB (IMMEDIATE RELEASE) PO PRN (11:53)
[2024-08-07] MEDS ORDERED: KETOROLAC 30 MG/ML VIAL IV PRN (12:00)
[2024-08-07] MEDS: SODIUM CHLORIDE 0.9% 1,000 ML IV SCH ×2 (19:20→19:23)
[2024-08-07] MEDS: MoRPHine SULFATE PF 1 MG/ML 10 ML AMP/VIAL EPI ONE (19:20)
[2024-08-07] MEDS: bisacodyL 5 MG TABEC PO SCH (19:47)
[2024-08-07 21:29] VITALS: O2SAT 97
[2024-08-08] MEDS ORDERED: bisacodyL 10 MG SUPP PR PRN (06:42)
--- NOTE | 2024-08-08 07:03 | Hospitalist Progress Note ---
Date of Service August 08, 2024 Assessment & Plan (1) Encounter for assessment: Plan: Patient is POD 2 s/p repeat C/S and doing well - Eating well, voiding well, ambulating well - vitals reviewed and within normal limits - pain well controlled with analgesics - OOB, ambulation, diet progression as tolerated - Blood type: A+, GBS pos, rubella immune - Plan to discharge today - After discharge, 6 week follow up with OBGYN Admission and Anticipated Discharge Date Admission Date: August 06, 2024 Subjective 39 yo post-operative day 2 s/p repeat Ambulation: ambulating normally Voiding: no voiding problems Passing Gas:: Yes Diet Tolerance:: No nausea or vomiting Lochia:: Small Feeding Type:: bottle feeding Current Pain Level: 4/10 Resting comfortably this AM in NAD. Denies ASHTON, CP, SOB, N/V/D, LE pain/swelling. Physical Exam Physical Exam: General: patient resting comfortably, NAD, non-toxic in appearance, answers questions appropriately. Skin: warm, dry, intact HEENT: NC/AT, anicteric sclera, conjunctiva without injection, moist mucus membranes. Heart: +S1/S2, regular, no m/r/g Lungs: equal air entry bilaterally, no rales/rhonchi/wheezes Abd: +BS, soft, NT/ND, uterine fundus firm at umbilicus Ext: warm, no clubbing/cyanosis or edema, Merari's neg. Neuro: nonfocal, speech intact, no facial droop, moving all extremities. Results & Data Results & Data Vital Signs (Past 12 Hours) Vital Signs Temp Pulse Resp BP Pulse Ox O2 Del Method 08/08/24 00:10 82 16 116/76 97 Room Air 08/07/24 19:45 36.8 C 98 H 18 106/68 97 Room Air Resident Activity Tracking Resident Involvement: Resident Care Provided Care Provided: Adult Hospital Medicine
--- NOTE | 2024-08-08 07:08 | Obstetrical Progress Note ---
Date of Service August 08, 2024 Assessment & Plan (1) Encounter for assessment: Plan: Patient is PPD 2 s/p repeat c/s and doing well - Eating well, voiding well, ambulating well - vitals reviewed and within normal limits - pain well controlled with analgesics - OOB, ambulation, diet progression as tolerated - Blood type: A+, GBS neg, rubella immune - Plan to discharge today - After discharge, 6 week follow up with OBGYN Admission and Anticipated Discharge Date Admission Date: August 06, 2024 Supervising Physician Co-Signing Physician Notes Resident Physician Supervision Note: I interviewed and examined the patient. Discussed with Dr. Tolbert and agree with findings and plan as documented in the note. Any exceptions or clarifications are listed here: Will send script for Percocet to pharmacy. Documented By: Ange Watters MD, FACOG Subjective 39 yo post- day 2 s/p Ambulation: ambulating normally Voiding: no voiding problems Passing Gas:: Yes Diet Tolerance:: regular diet Lochia:: Small Feeding Type:: breast feeding Current Pain Level: 4/10 Resting comfortably this AM in NAD. Denies ASHTON, CP, SOB, N/V/D, LE pain/swelling. Physical Exam Physical Exam: General: patient resting comfortably, NAD, non-toxic in appearance, answers ques tions appropriately. Skin: warm, dry, intact HEENT: NC/AT, anicteric sclera, conjunctiva without injection, moist mucus membranes. Heart: +S1/S2, regular, no m/r/g Lungs: equal air entry bilaterally, no rales/rhonchi/wheezes Abd: +BS, soft, NT/ND, uterine fundus firm at umbilicus Ext: warm, no clubbing/cyanosis or edema, Merari's neg. Neuro: nonfocal, speech intact, no facial droop, moving all extremities. Results & Data Vital Signs (Past 12 Hours) Vital Signs Temp Pulse Resp BP Pulse Ox O2 Del Method 08/08/24 00:10 82 16 116/76 97 Room Air 08/07/24 19:45 36.8 C 98 H 18 106/68 97 Room Air Resident Activity Tracking Resident Involvement: Resident Care Provided Care Provided: OB Delivery
[2024-08-08 08:16] LABS: Hematocrit (blood only) 29.8 % (37.0-47.0); Hemoglobin 10.1 g/dl (12.0-16.0)
[2024-08-08 08:54] VITALS: BP 110/73; PULSE 90; RESP 18; TEMP 97.9
[2024-08-08] MEDS ORDERED: ACETAMINOPHEN 325 MG TAB PO PRN (12:00)
[2024-08-08] MEDS: IBUPROFEN 600 MG TAB PO PRN (12:36)
== END 2024-08-08 13:45 | disposition home or self-care (01) | DRG 787 ==
LOC: OPB 00:08 → 4S1 00:13 → 4E2 10:38